=== PATIENT | male | born 1975 | race Caucasian/White ===

== ENCOUNTER 2017-07-06 08:23 | Emergency (ER) | payer SELFPAY ==
[2017-07-06 08:29] VITALS: BP 120/77; PULSE 94; RESP 20; TEMP 37.2; O2SAT 100; BMI 24.3
--- NOTE | 2017-07-06 09:09 | HMH.EDBACK ---
ED Disposition Clinical Impression: Sciatica Qualifiers: Laterality: left Qualified Code(s): M54.32 - Sciatica, left side Disposition: Home, Self-Care Condition on Discharge: Good Instructions: DI for Low Back Pain Additional Instructions: Please find a local family physician, with whom you need to establish regular care. Call Dr. Aldair Gee's office and schedule follow-up appointment. Your physical exam today is indicative of a herniated disc, you will need to undergo additional imaging studies (MRI) for this purpose. Prescriptions: Etodolac [Etodolac 200mg Cap] 200 mg PO BID #20 cap Referrals: Aldair Gee [Referring] - Time of Disposition: 11:23 - Critical Care Critical Care Time: No Attestation: On 07/06/17, the high probability of a clinically significant, sudden or life threatening deterioration of the following system(s) required my full and direct attention, intervention and personal management. The time I documented below is in addition to time spent performing reported procedures but includes the following listed in this critical care notation. Medical Decision Making - Medical Records Medical records reviewed: Yes: I reviewed the patient's medical records. - Ama[place] Inquiry Pt receiving controlled substance: No Vital Signs: 07/06/17 08:29 07/06/17 11:27 Temperature 98.9 F 98 F Temperature Source Oral Oral Pulse Rate 76 Pulse Rate [Left Radial] 94 H Respiratory Rate 20 18 Blood Pressure 108/57 Blood Pressure [Left Radial Artery] 120/77 Blood Pressure Mean [Left Radial Artery] 91 Blood Pressure Source Automatic Cuff Blood Pressure Source [Left Radial Artery] Automatic Cuff Blood Pressure Position Supine Blood Pressure Position [Left Radial Artery] Sitting 02 Sat by Pulse Oximetry 100 Oxygen Delivery Method Room Air Room Air Orders (Tests/Meds): ED MEDICATIONS Discontinued Medications Generic Name Dose Route Start Last Admin Trade Name Freq PRN Reason Stop Dose Admin Ketorolac Tromethamine 60 mg 07/06/17 09:17 07/06/17 09:45 Toradol 30mg/Ml Vial IM 07/06/17 09:18 60 mg ONCE ONE Administration Methylprednisolone Acetate 80 mg 07/06/17 09:17 07/06/17 09:46 Depo-Medrol 40mg/Ml Vial IM 07/06/17 09:18 80 mg ONCE ONE Administration Ondansetron HCl 4 mg 07/06/17 09:17 07/06/17 09:46 Zofran 4mg/2ml Vial IM 07/06/17 09:18 4 mg ONCE ONE Administration - Reevaluation(s) Time: 11:30 Reevaluation #1: I the lengthy conversation with patient as well as with his family members, encouraged them to find a local PCP in order to help with a referral to an orthopedic surgeon. Differential diagnosis: Herniated lumbar spine disc, sciatica, spinal stenosis etc. Patient is to follow-up with a orthopedic surgeon for additional outpatient workup. Given the length of the patient's symptoms, roughly 12 years, this would not be considered a medical emergency at this time. Back Pain HPI - General Chief Complaint: Back Pain/Injury Stated Complaint: back pain Time Seen by Provider: 07/06/17 09:30 Mode of Arrival: Ambulatory Source of Information: Patient Limitations: No Limitations Description of Symptoms (Recalled from ER Triage Doc. by RN): Left sided back pain that radiates down left leg. Also c/o left testicular pain. Has had this pain for two years but has never had a MRI due to economic reasons. - History of Present Illness HPI Narrative: This is a pleasant 41-year-old male patient arriving to the emergency room with his grandmother and mother, complaining with low back pain for the past 12 years (since 2005), nontraumatic in nature. For the past 1 week the patient's low back pain started radiating down the left lower extremity, causing him to limp. However the patient has any incontinence, denies any weakness, fever or numbness in his left lower extremity. Patient stated he was seen in the [place] approximately 2 years ago and he
--- NOTE | 2017-07-06 09:17 | ED_ITS ---
ED Disposition Clinical Impression: Sciatica Qualifiers: Laterality: left Qualified Code(s): M54.32 - Sciatica, left side Disposition: Home, Self-Care Condition on Discharge: Good Instructions: DI for Low Back Pain Additional Instructions: Please find a local family physician, with whom you need to establish regular care. Call Dr. Aldair Gee's office and schedule follow-up appointment. Your physical exam today is indicative of a herniated disc, you will need to undergo additional imaging studies (MRI) for this purpose. Prescriptions: Etodolac [Etodolac 200mg Cap] 200 mg PO BID #20 cap Referrals: Aldair Gee [Referring] - Time of Disposition: 11:23 - Critical Care Critical Care Time: No Attestation: On 07/06/17, the high probability of a clinically significant, sudden or life threatening deterioration of the following system(s) required my full and direct attention, intervention and personal management. The time I documented below is in addition to time spent performing reported procedures but includes the following listed in this critical care notation. Medical Decision Making - Medical Records Medical records reviewed: Yes: I reviewed the patient's medical records. - Amauri Inquiry Pt receiving controlled substance: No Vital Signs: 07/06/17 08:29 07/06/17 11:27 Temperature 98.9 F 98 F Temperature Source Oral Oral Pulse Rate 76 Pulse Rate [Left Radial] 94 H Respiratory Rate 20 18 Blood Pressure 108/57 Blood Pressure [Left Radial Artery] 120/77 Blood Pressure Mean [Left Radial Artery] 91 Blood Pressure Source Automatic Cuff Blood Pressure Source [Left Radial Artery] Automatic Cuff Blood Pressure Position Supine Blood Pressure Position [Left Radial Artery] Sitting 02 Sat by Pulse Oximetry 100 Oxygen Delivery Method Room Air Room Air Orders (Tests/Meds): ED MEDICATIONS Discontinued Medications Generic Name Dose Route Start Last Admin Trade Name Freq PRN Reason Stop Dose Admin Ketorolac Tromethamine 60 mg 07/06/17 09:17 07/06/17 09:45 Toradol 30mg/Ml Vial IM 07/06/17 09:18 60 mg ONCE ONE Administration Methylprednisolone Acetate 80 mg 07/06/17 09:17 07/06/17 09:46 Depo-Medrol 40mg/Ml Vial IM 07/06/17 09:18 80 mg ONCE ONE Administration Ondansetron HCl 4 mg 07/06/17 09:17 07/06/17 09:46 Zofran 4mg/2ml Vial IM 07/06/17 09:18 4 mg ONCE ONE Administration - Reevaluation(s) Time: 11:30 Reevaluation #1: I the lengthy conversation with patient as well as with his family members, encouraged them to find a local PCP in order to help with a referral to an orthopedic surgeon. Differential diagnosis: Herniated lumbar spine disc, sciatica, spinal stenosis etc. Patient is to follow-up with a orthopedic surgeon for additional outpatient workup. Given the length of the patient's symptoms, roughly 12 years, this would not be considered a medical emergency at this time. Back Pain HPI - General Chief Complaint: Back Pain/Injury Stated Complaint: back pain Time Seen by Provider: 07/06/17 09:30 Mode of Arrival: Ambulatory Source of Information: Patient Limitations: No Limitations Description of Symptoms (Recalled from ER Triage Doc. by RN): Left sided back pain that radiates down left leg. Also c/o left testicular pain. Has had
[2017-07-06 11:27] VITALS: BP 108/57; PULSE 76; RESP 18; TEMP 36.6
== END 2017-07-06 11:38 | disposition home or self-care (01) ==
PROVIDERS: Emergency Provider Emergency Medicine
DX: M54.32 Sciatica, left side (principal); F17.210 Nicotine dependence, cigarettes, uncomplicated
CPT/HCPCS: 96372; 99281; J1030; J2405